=== PATIENT | female | born 1965 | race Caucasian/White ===

== ENCOUNTER 2018-12-31 10:52 | Inpatient (IN) | payer OTHER ==
[2018-12-31] MEDS ORDERED: Acetaminophen 500 MG Tab ONE (11:42)
[2018-12-31] MEDS ORDERED: Albuterol/Ipratropium 3.0-0.5 MG/3 ML Neb Soln ONE (11:42)
[2018-12-31] MEDS ORDERED: Sodium Chloride 0.9% 1,000 ML ONE (11:42)
[2018-12-31 12:31] LABS: CHLORIDE,CL 104 mEq/L (98-106); SODIUM,NA 143 mEq/L (136-145)
[2018-12-31] MEDS ORDERED: Albuterol/Ipratropium 3.0-0.5 MG/3 ML Neb Soln NEB PRN (14:19)
[2018-12-31] MEDS ORDERED: Ondansetron 4 MG/2 ML SDV IV PRN (14:19)
[2018-12-31] MEDS ORDERED: methylPREDNISolone Sodium Succinate 125 MG/2 ML SDV IVPUSH SCH (14:30)
[2018-12-31] MEDS: Enoxaparin 40 MG/0.4 ML Syringe SUBCUT SCH (15:00)
[2018-12-31] MEDS: Levofloxacin/Dextrose 5%-Water 750 MG in Premix Bag 1 BAG IV SCH (15:00)
[2018-12-31] MEDS: Albuterol/Ipratropium 3.0-0.5 MG/3 ML Neb Soln NEB SCH ×2 (16:27→19:24)
[2018-12-31] MEDS: Ibuprofen 200 MG Tab PO PRN (19:25)
[2019-01-01] MEDS: guaiFENesin/Dextromethorphan 100-10 MG/5 ML Soln 5 ML Cup PO PRN ×2 (01:23→21:00)
[2019-01-01] MEDS: Acetaminophen 325 MG Tab PO PRN ×2 (04:36→22:42)
[2019-01-01 07:25] LABS: CHLORIDE,CL 106 mEq/L (98-106); SODIUM,NA 142 mEq/L (136-145)
[2019-01-01] MEDS: Albuterol/Ipratropium 3.0-0.5 MG/3 ML Neb Soln NEB SCH ×4 (07:53→19:53)
[2019-01-01] MEDS ORDERED: methylPREDNISolone Sodium Succinate 125 MG/2 ML SDV IVPUSH SCH (08:00)
--- NOTE | 2019-01-01 11:50 | PCM.PN ---
- General Info Date of Service: 01/01/19 Functional Status: Reports: Pain Controlled, Tolerating Diet, Ambulating - Review of Systems General: Reports: Weakness (generalized), Fatigue, Malaise HEENT: Reports: Sinus Congestion Pulmonary: Reports: Shortness of Breath, Cough. Denies: Sputum Cardiovascular: Reports: No Symptoms Gastrointestinal: Reports: No Symptoms Genitourinary: Reports: No Symptoms Musculoskeletal: Reports: No Symptoms Skin: Reports: No Symptoms Neurological: Reports: No Symptoms Psychiatric: Reports: No Symptoms - Patient Data Vitals - Most Recent: Last Vital Signs Temp 98.8 F 01/01/19 08:00 Pulse 78 01/01/19 08:00 Resp 20 01/01/19 08:00 BP 127/74 01/01/19 08:00 Pulse Ox 127 H 01/01/19 08:00 Weight - Most Recent: 259 lb Lab Results Last 24 Hours: Laboratory Results - last 24 hr 12/31/18 01/01/19 01/01/19 Range/Units 11:50 06:45 06:45 WBC 19.9 H (5.0-10.0) 10^3/uL RBC 4.12 (4.00-5.50) 10^6/uL Hgb 12.8 (12.0-16.0) g/dL Hct 38.8 (37.0-47.0) % MCV 94.2 H (82.0-94.0) fL MCH 31.1 (27.0-32.0) pg MCHC 33.0 (33.0-38.0) g/dL RDW Coeff of Jim 13.8 (11.0-15.0) % Plt Count 196 (150-400) 10^3/uL Neut % (Auto) 89.9 H (35-85) % Lymph % (Auto) 4.9 L (10-55) % [place] % (Auto) 5.1 (0-16) % Eos % (Auto) 0 (0-5) % Baso % (Auto) 0.1 (0-3) % Neut # (Auto) 17.92 H (1.80-7.00) 10^3/uL Lymph # (Auto) 0.97 L (1.00-4.80) 10^3/uL [place] # (Auto) 1.01 H (0.00-0.80) 10^3/uL Eos # (Auto) 0.00 (0.00-0.45) 10^3/uL Baso # (Auto) 0.01 10^3/uL Neutrophils % (Manual) 73 (35-85) % Band Neutrophils % 20 H (0-5) % Lymphocytes % (Manual) 5 L (21-55) % Monocytes % (Manual) 2 (2-12) % Sodium 142 (136-145) mEq/L Potassium 3.8 (3.5-5.0) mEq/L Chloride 106 (98-106) mEq/L Carbon Dioxide 24 (21-32) mmol/L BUN 17 (7-18) mg/dL Creatinine 0.9 (0.6-1.0) mg/dL Est Cr Clr Drug Dosing 80.80 mL/min Estimated GFR (MDRD) > 60 (>=60) mL/min Glucose 119 H (75-99) mg/dL Calcium 9.6 (8.4-10.1) mg/dL C-Reactive Protein 15.8 H (0.2-0.8) mg/dL Gurpreet Results Last 24 Hours: Microbiology 12/31/18 10:45 Influenza Type A Antigen Screen - Final Nasopharyngeal Swab NEGATIVE INFLUENZA A VIRUS AG REFERENCE RANGE: NEGATIVE Influenza Type B Antigen Screen - Final NEGATIVE INFLUENZA B VIRUS AG REFERENCE RANGE: NEGATIVE Med Orders - Current: Current Medications Acetaminophen (Tylenol) 650 mg PO Q4H PRN PRN Reason: Fever Last Admin: 01/01/19 04:36 Dose: 650 mg Albuterol/Ipratropium (Duoneb 3.0-0.5 Mg/3 Ml) 3 ml NEB Q4H PRN PRN Reason: Shortness Of Breath/wheezing Albuterol/Ipratropium (Duoneb 3.0-0.5 Mg/3 Ml) 3 ml NEB QIDRT [facility] Last Admin: 01/01/19 07:53 Dose: 3 ml Enoxaparin Sodium (Lovenox) 40 mg SUBCUT Q24H [facility] Last Admin: 12/31/18 15:00 Dose: 40 mg Guaifenesin (Organ-I Nr) 200 mg PO TID [facility] Guaifenesin/Phenylephrine HCl (Robitussin Dm) 10 ml PO Q4H PRN PRN Reason: Cough Last Admin: 01/01/19 01:23 CDT Dose: 10 ml Levofloxacin/Dextrose 750 mg/ (Premix) 150 mls @ 100 mls/hr IV Q24H [facility] Last Admin: 12/31/18 15:00 Dose: 100 mls/hr Ibuprofen (Motrin) 600 mg PO Q6H PRN PRN Reason: Fever Last Admin: 12/31/18 19:25 Dose: 600 mg Ondansetron HCl (Zofran) 4 mg IV Q6H PRN PRN Reason: Nausea/Vomiting Discontinued Medications Acetaminophen (Tylenol Extra Strength) Confirm Administered Dose 1,000 mg .ROUTE .STK-MED ONE Stop: 12/31/18 11:43 Last Admin: 12/31/18 11:45 Dose: 1,000 mg Albuterol/Ipratropium (Duoneb 3.0-0.5 Mg/3 Ml) Confirm Administered Dose 6 ml .ROUTE .STK-MED ONE Stop: 12/31/18 11:43 Last Admin: 12/31/18 11:45 Dose: 6 ml Sodium Chloride (Normal Saline) Confirm Administered Dose 1,000 mls @ as directed .ROUTE .STK-MED ONE Stop: 12/31/18 11:43 Last Admin: 12/31/18 11:45 Dose: 500 mls/hr Methylprednisolone Sodium Succinate (Solu-Medrol) 62.5 mg IVPUSH Q12H [facility] Last Admin: 12/31/18 14:59 Dose: 62.5 mg Methylprednisolone Sodium Succinate (Solu-Medrol) 62.5 mg IVPUSH Q12H [facility] Last Admin: 01/01/19 07:53 Dose: 62.5 mg - Exam Quality Assessment: Supplemental Oxygen (2L NC, 92%) General: Alert, Oriented, Cooperative, No Acute Distress Neck: Supple, Trachea Midline, No JVD Lungs: Decreased Breath Sounds (Moderate [place]D, LLL, Mild remaining throughout. ) , Rhonchi (Moderate throughout) Cardiovascular: Regular Rate, Regular Rhythm, No Murmurs GI/Abdominal Exam: Soft, Non-Tender Back Exam: Normal Inspection, Full Range of Motion Extremities: Normal Inspection, Normal Range of Motion, Non-Tender, No Pedal Edema, Normal Capillary Refill. No: Pedal Edema Peripheral Pulses: 2+: Radial (L), Radial (R), Posterior Tibial (L), Posterior Tibial (R), Dorsalis Pedis (L), Dorsalis Pedis (R) Skin: Warm, Dry, Intact Neurological: No New Focal Deficit Psy/Mental Status: Alert, Normal Affect, Normal Mood - Problem List Review Problem List Initiated/Reviewed/Updated: Yes - My Orders Last 24 Hours: My Active Orders 12/31/18 11:50 CULTURE BLOOD [BC] Stat 12/31/18 11:55 CULTURE BLOOD [BC] Stat 12/31/18 14:19 Patient Status [ADT] Routine Ambulate [RC] .PRN Oxygen Therapy [RC] .PRN Vital Signs [RC] 0000,0400,0800,1200,1600,1999 CULTURE SPUTUM + SMEAR [RM] Stat Acetaminophen [Tylenol] 650 mg PO Q4H PRN Albuterol/Ipratropium [DuoNeb 3.0-0.5 MG/3 ML] 3 ml NEB Q4H PRN Ibuprofen [Motrin] 600 mg PO Q6H PRN Ondansetron [Zofran] 4 mg IV Q6H PRN Resuscitation Status Routine 12/31/18 14:20 Notify Provider Vital Signs [RC] .PRN Pulse Oximetry [RC] .PRN 12/31/18 14:21 Ambulate [RC] .PRN Antiembolic Hose [OM.PC] Per Unit Routine 12/31/18 14:23 RT Aerosol Therapy [RC] 0800,1200,1600,2000 12/31/18 14:30 Enoxaparin [Lovenox] 40 mg SUBCUT Q24H Levofloxacin/Dextrose 5%-Water [Levaquin in D5W 750 MG/150 ML] 750 mg Premix Bag 1 bag IV Q24H 12/31/18 16:00 Albuterol/Ipratropium [DuoNeb 3.0-0.5 MG/3 ML] 3 ml NEB QIDRT 12/31/18 Dinner Regular Diet [DIET] 01/01/19 01:08 Dextromethorphan/guaiFENesin [Robitussin DM] 10 ml PO Q4H PRN 01/01/19 14:00 guaiFENesin [Organ-I NR] 200 mg PO TID 01/02/19 05:00 C-REACTIVE PROTEIN [CHEM] DAILY CBC WITH AUTO DIFF [HEME] DAILY 01/03/19 05:00 C-REACTIVE PROTEIN [CHEM] DAILY CBC WITH AUTO DIFF [HEME] DAILY 01/04/19 05:00 C-REACTIVE PROTEIN [CHEM] DAILY CBC WITH AUTO DIFF [HEME] DAILY - Plan Plan:: This patient was admitted by me yesterday from clinic for pneumonia. Patient today reports that she continues to have cough that is not productive. She reports that she continues to have congestion and generalized weakness and fatigue. Patient reports that she does have shortness of breath, but that has improved slightly compared to yesterday. Patient today was able to ambulate to the bathroom and shower. Patient reports that she did not sleep well last night due to cough. Patient reports that the breathing treatments do feel like they are helping. Patient is alert and oriented and able to converse in full and complete sentences. Patient labs today are wbc 19.9, BUN 20, CR 0.9, CRP 15.8. The patient oxygen was 90% on RA, was placed on 2L NC and is now 92%. Patient is not moving much air on exam. Will start on Mucinex and continue with treatments. Plan is to keep admit and have her seen again tomorrow. Continue abx.
[2019-01-01] MEDS: Enoxaparin 40 MG/0.4 ML Syringe SUBCUT SCH (13:49)
[2019-01-01] MEDS: Levofloxacin/Dextrose 5%-Water 750 MG in Premix Bag 1 BAG IV SCH (13:49)
[2019-01-01] MEDS: guaiFENesin 200 MG Tab PO SCH ×2 (13:49→19:53)
--- NOTE | 2019-01-01 19:37 | PCM.SN ---
- Free Text/Narrative Note: The patient has been restless, her oxygen has been about 93% on 2 L NC. She reports still feeling short of breath even after breathing treatments. She reports insomnia. She reports nonproductive cough. I will CTA chest for PE, pulmonary occlusions, or pulmonary abscess. Also ordered an ABG.
[2019-01-01 19:38] LABS: O2 DELIVERY DEVICE NASAL CANNULA
[2019-01-01 19:40] LABS: BICARBONATE,ARTERIAL 21.7 mm/L (22.0-26.0); O2 SATURATION ARTERIAL 93 % (95-98); PCO2 ARTERIAL 35 mm/Hg0 (35-45); PO2 ARTERIAL 68 mm/Hg (80-100)
[2019-01-01] MEDS ORDERED: Iopamidol 755 Mg/ML 200 ML Bottle IV ONE (19:41)
[2019-01-01] MEDS: Temazepam 15 MG Cap PO PRN (22:41)
[2019-01-02] MEDS: Acetaminophen 325 MG Tab PO PRN (04:53)
[2019-01-02] MEDS: guaiFENesin/Dextromethorphan 100-10 MG/5 ML Soln 5 ML Cup PO PRN ×3 (04:53→19:49)
[2019-01-02] MEDS: Albuterol/Ipratropium 3.0-0.5 MG/3 ML Neb Soln NEB SCH ×4 (08:59→19:49)
[2019-01-02] MEDS: guaiFENesin 200 MG Tab PO SCH ×3 (08:59→19:49)
[2019-01-02] MEDS: Levofloxacin/Dextrose 5%-Water 750 MG in Premix Bag 1 BAG IV SCH (14:44)
[2019-01-02] MEDS: Enoxaparin 40 MG/0.4 ML Syringe SUBCUT SCH (14:45)
--- NOTE | 2019-01-02 16:39 | PCM.PN ---
- General Info Date of Service: 01/02/19 Functional Status: Reports: Pain Controlled, Tolerating Diet. Denies: Ambulating - Review of Systems General: Reports: Weakness, Fatigue, Malaise. Denies: Fever HEENT: Denies: Ear Pain, Sinus Congestion, Rhinitis Pulmonary: Reports: Shortness of Breath, Pleuritic Chest Pain, Cough. Denies: Sputum, Wheezing Cardiovascular: Denies: Chest Pain, Edema, Lightheadedness Gastrointestinal: Denies: Abdominal Pain, Nausea, Vomiting Genitourinary: Reports: No Symptoms Musculoskeletal: Reports: No Symptoms Skin: Reports: No Symptoms Neurological: Reports: No Symptoms - Patient Data Vitals - Most Recent: Last Vital Signs Temp 98.8 F 01/02/19 12:00 Pulse 83 01/02/19 12:00 Resp 18 01/02/19 12:00 BP 139/77 01/02/19 12:00 Pulse Ox 95 01/02/19 12:00 Weight - Most Recent: 259 lb Lab Results Last 24 Hours: Laboratory Results - last 24 hr 01/01/19 01/02/19 01/02/19 Range/Units 19:35 06:45 06:45 WBC 16.9 H (5.0-10.0) 10^3/uL RBC 3.85 L (4.00-5.50) 10^6/uL Hgb 12.0 (12.0-16.0) g/dL Hct 36.9 L (37.0-47.0) % MCV 95.8 H (82.0-94.0) fL MCH 31.2 (27.0-32.0) pg MCHC 32.5 L (33.0-38.0) g/dL RDW Coeff of Jim 14.1 (11.0-15.0) % Plt Count 190 (150-400) 10^3/uL Neut % (Auto) 83.7 (35-85) % Lymph % (Auto) 9.9 L (10-55) % [place] % (Auto) 6.3 (0-16) % Eos % (Auto) 0 (0-5) % Baso % (Auto) 0.1 (0-3) % Neut # (Auto) 14.12 H (1.80-7.00) 10^3/uL Lymph # (Auto) 1.67 (1.00-4.80) 10^3/uL [place] # (Auto) 1.06 H (0.00-0.80) 10^3/uL Eos # (Auto) 0.00 (0.00-0.45) 10^3/uL Baso # (Auto) 0.01 10^3/uL ABG pH 7.40 (7.35-7.45) ABG pCO2 35 (35-45) mm/Hg0 ABG pO2 68 L (80-100) mm/Hg ABG HCO3 21.7 L (22.0-26.0) mm/L ABG O2 Saturation 93 L (95-98) % ABG Base Excess -3.0 L (-2.0-3.0) O2 Delivery Device Nasal cannula C-Reactive Protein 6.4 H (0.2-0.8) mg/dL Gurpreet Results Last 24 Hours: Microbiology 12/31/18 11:55 Aerobic Blood Culture - Preliminary Blood - Venous - Lab Draw NO GROWTH AFTER 2 DAYS Anaerobic Blood Culture - Preliminary NO GROWTH AFTER 2 DAYS 12/31/18 11:50 Aerobic Blood Culture - Preliminary Blood - Venous NO GROWTH AFTER 2 DAYS Anaerobic Blood Culture - Preliminary NO GROWTH AFTER 2 DAYS 01/02/19 08:31 Gram Stain - Final Sputum - Expectorated Med Orders - Current: Current Medications Acetaminophen (Tylenol) 650 mg PO Q4H PRN PRN Reason: Fever Last Admin: 01/02/19 04:53 Dose: 650 mg Albuterol/Ipratropium (Duoneb 3.0-0.5 Mg/3 Ml) 3 ml NEB Q4H PRN PRN Reason: Shortness Of Breath/wheezing Albuterol/Ipratropium (Duoneb 3.0-0.5 Mg/3 Ml) 3 ml NEB QIDRT [facility] Last Admin: 01/02/19 16:21 Dose: 3 ml Enoxaparin Sodium (Lovenox) 40 mg SUBCUT Q24H [facility] Last Admin: 01/02/19 14:45 Dose: 40 mg Guaifenesin (Organ-I Nr) 200 mg PO TID [facility] Last Admin: 01/02/19 14:44 Dose: 200 mg Guaifenesin/Phenylephrine HCl (Robitussin Dm) 10 ml PO Q4H PRN PRN Reason: Cough Last Admin: 01/02/19 12:58 Dose: 10 ml Levofloxacin/Dextrose 750 mg/ (Premix) 150 mls @ 100 mls/hr IV Q24H [facility] Last Admin: 01/02/19 14:44 Dose: 100 mls/hr Ibuprofen (Motrin) 600 mg PO Q6H PRN PRN Reason: Fever Last Admin: 12/31/18 19:25 Dose: 600 mg Ondansetron HCl (Zofran) 4 mg IV Q6H PRN PRN Reason: Nausea/Vomiting Temazepam (Restoril) 15 mg PO BEDTIME PRN PRN Reason: Insomnia Last Admin: 01/01/19 22:41 Dose: 15 mg Discontinued Medications Acetaminophen (Tylenol Extra Strength) Confirm Administered Dose 1,000 mg .ROUTE .STK-MED ONE Stop: 12/31/18 11:43 Last Admin: 12/31/18 11:45 Dose: 1,000 mg Albuterol/Ipratropium (Duoneb 3.0-0.5 Mg/3 Ml) Confirm Administered Dose 6 ml .ROUTE .STK-MED ONE Stop: 12/31/18 11:43 Last Admin: 12/31/18 11:45 Dose: 6 ml Sodium Chloride (Normal Saline) Confirm Administered Dose 1,000 mls @ as directed .ROUTE .STK-MED ONE Stop: 12/31/18 11:43 Last Admin: 12/31/18 11:45 Dose: 500 mls/hr Iopamidol (Isovue-370 (76%)) 160 ml IV ONETIME ONE Stop: 01/01/19 19:42 Last Admin: 01/01/19 21:08 Dose: 160 ml Methylprednisolone Sodium Succinate (Solu-Medrol) 62.5 mg IVPUSH Q12H [facility] Last Admin: 12/31/18 14:59 Dose: 62.5 mg Methylprednisolone Sodium Succinate (Solu-Medrol) 62.5 mg IVPUSH Q12H [facility] Last Admin: 01/01/19 07:53 Dose: 62.5 mg - Exam Quality Assessment: Supplemental Oxygen General: Alert, Oriented HEENT: Mucous Membr. Moist/[place] Neck: Supple Lungs: Decreased Breath Sounds, Crackles (bases bilateral) Cardiovascular: Regular Rate, Regular Rhythm GI/Abdominal Exam: Normal Bowel Sounds, Soft, Non-Tender Back Exam: Normal Inspection, Full Range of Motion Extremities: Normal Range of Motion Skin: Warm, Dry Neurological: No New Focal Deficit - Problem List & Annotations (1) Pneumonia SNOMED Code(s): 895197568 Code(s): J18.9 - PNEUMONIA, UNSPECIFIED ORGANISM Status: Acute Priority: High Current Visit: Yes Qualifiers: Pneumonia type: due to unspecified organism Laterality: bilateral Lung location: lower lobe of lung Qualified Code(s): J18.1 - Lobar pneumonia, unspecified organism - Problem List Review Problem List Initiated/Reviewed/Updated: Yes - My Orders Last 24 Hours: My Active Orders 01/03/19 05:11 BASIC METABOLIC PANEL,BMP [CHEM] AM - Assessment Assessment:: Bilateral lower lobe pneumonia - Plan Plan:: This patient was admitted by me yesterday from clinic for pneumonia. Patient today reports that she continues to have cough that is not productive. She reports that she continues to have congestion and generalized weakness and fatigue. Patient reports that she does have shortness of breath, but that has improved slightly compared to yesterday. Patient today was able to ambulate to the bathroom and shower. Patient reports that she did not sleep well last night due to cough. Patient reports that the breathing treatments do feel like they are helping. Patient is alert and oriented and able to converse in full and complete sentences. Patient labs today are wbc 19.9, BUN 20, CR 0.9, CRP 15.8. The patient oxygen was 90% on RA, was placed on 2L NC and is now 92%. Patient is not moving much air on exam. Will start on Mucinex and continue with treatments. Plan is to keep admit and have her seen again tomorrow. Continue abx. 01-02-2019 Patient continues to feel weak and achy. She states her chest is burning due to the cough. Not sleeping well due to the cough. Did try a sleeping pill last night without much help. She is coughing more now, starting to be looser but not yet productive. She does continue to require oxygen as sats only 93% on 3 liters. Not ambulating much, states gets "too winded". Lung sounds are noted to have crackles in the bases. CT scan showed bibasilar pneumonia. Labs show slow improvement of WBC to 16.9, CRP 15.8. Will continue with IV Levaquin. Nebulizer treatments. Recheck labs in am.
[2019-01-02] MEDS: Ibuprofen 200 MG Tab PO PRN (19:58)
[2019-01-03] MEDS: guaiFENesin 200 MG Tab PO SCH ×3 (07:22→20:06)
[2019-01-03] MEDS: Albuterol/Ipratropium 3.0-0.5 MG/3 ML Neb Soln NEB SCH ×4 (07:23→20:06)
[2019-01-03] MEDS: Acetaminophen 325 MG Tab PO PRN ×2 (07:27→20:32)
--- NOTE | 2019-01-03 12:07 | PCM.PN ---
- General Info Date of Service: 01/03/19 Admission Dx/Problem (Free Text): bilateral lower lobe pneumonia Functional Status: Reports: Pain Controlled, Tolerating Diet. Denies: Ambulating - Review of Systems General: Reports: Weakness, Fatigue, Malaise. Denies: Fever HEENT: Reports: Rhinitis. Denies: Ear Pain, Sinus Congestion Pulmonary: Reports: Shortness of Breath, Pleuritic Chest Pain, Cough, Sputum Cardiovascular: Denies: Chest Pain, Edema, Lightheadedness Gastrointestinal: Denies: Abdominal Pain, Nausea, Vomiting Genitourinary: Reports: No Symptoms Musculoskeletal: Reports: No Symptoms Skin: Reports: No Symptoms Neurological: Reports: No Symptoms - Patient Data Vitals - Most Recent: Last Vital Signs Temp 98.1 F 01/03/19 08:00 Pulse 84 01/03/19 08:00 Resp 20 01/03/19 08:00 BP 148/75 H 01/03/19 08:00 Pulse Ox 93 L 01/03/19 08:00 Weight - Most Recent: 259 lb Lab Results Last 24 Hours: Laboratory Results - last 24 hr 01/03/19 01/03/19 Range/Units 07:00 07:00 WBC 8.4 (5.0-10.0) 10^3/uL RBC 4.17 (4.00-5.50) 10^6/uL Hgb 13.0 (12.0-16.0) g/dL Hct 39.8 (37.0-47.0) % MCV 95.4 H (82.0-94.0) fL MCH 31.2 (27.0-32.0) pg MCHC 32.7 L (33.0-38.0) g/dL RDW Coeff of Jim 14.2 (11.0-15.0) % Plt Count 192 (150-400) 10^3/uL Neut % (Auto) 70.8 (35-85) % Lymph % (Auto) 18.6 (10-55) % [place] % (Auto) 8.0 (0-16) % Eos % (Auto) 2.4 (0-5) % Baso % (Auto) 0.2 (0-3) % Neut # (Auto) 5.95 (1.80-7.00) 10^3/uL Lymph # (Auto) 1.56 (1.00-4.80) 10^3/uL [place] # (Auto) 0.67 (0.00-0.80) 10^3/uL Eos # (Auto) 0.20 (0.00-0.45) 10^3/uL Baso # (Auto) 0.02 10^3/uL Sodium 140 (136-145) mEq/L Potassium 3.9 (3.5-5.0) mEq/L Chloride 103 (98-106) mEq/L Carbon Dioxide 28 (21-32) mmol/L BUN 13 (7-18) mg/dL Creatinine 1.0 (0.6-1.0) mg/dL Est Cr Clr Drug Dosing 72.72 mL/min Estimated GFR (MDRD) 58 L (>=60) mL/min Glucose 95 (75-99) mg/dL Calcium 9.9 (8.4-10.1) mg/dL C-Reactive Protein 3.3 H (0.2-0.8) mg/dL Gurpreet Results Last 24 Hours: Microbiology 01/02/19 08:31 Gram Stain - Final Sputum - Expectorated Sputum Culture - Preliminary 12/31/18 11:55 Aerobic Blood Culture - Preliminary Blood - Venous - Lab Draw NO GROWTH AFTER 2 DAYS Anaerobic Blood Culture - Preliminary NO GROWTH AFTER 2 DAYS 12/31/18 11:50 Aerobic Blood Culture - Preliminary Blood - Venous NO GROWTH AFTER 2 DAYS Anaerobic Blood Culture - Preliminary NO GROWTH AFTER 2 DAYS Med Orders - Current: Current Medications Acetaminophen (Tylenol) 650 mg PO Q4H PRN PRN Reason: Fever Last Admin: 01/03/19 07:27 Dose: 650 mg Albuterol/Ipratropium (Duoneb 3.0-0.5 Mg/3 Ml) 3 ml NEB Q4H PRN PRN Reason: Shortness Of Breath/wheezing Albuterol/Ipratropium (Duoneb 3.0-0.5 Mg/3 Ml) 3 ml NEB QIDRT [facility] Last Admin: 01/03/19 07:23 Dose: 3 ml Enoxaparin Sodium (Lovenox) 40 mg SUBCUT Q24H [facility] Last Admin: 01/02/19 14:45 Dose: 40 mg Guaifenesin (Organ-I Nr) 200 mg PO TID [facility] Last Admin: 01/03/19 07:22 Dose: 200 mg Guaifenesin/Phenylephrine HCl (Robitussin Dm) 10 ml PO Q4H PRN PRN Reason: Cough Last Admin: 01/02/19 19:49 Dose: 10 ml Levofloxacin/Dextrose 750 mg/ (Premix) 150 mls @ 100 mls/hr IV Q24H [facility] Last Admin: 01/02/19 14:44 Dose: 100 mls/hr Ibuprofen (Motrin) 600 mg PO Q6H PRN PRN Reason: Fever Last Admin: 01/02/19 19:58 Dose: 600 mg Ondansetron HCl (Zofran) 4 mg IV Q6H PRN PRN Reason: Nausea/Vomiting Temazepam (Restoril) 15 mg PO BEDTIME PRN PRN Reason: Insomnia Last Admin: 01/01/19 22:41 Dose: 15 mg Discontinued Medications Acetaminophen (Tylenol Extra Strength) Confirm Administered Dose 1,000 mg .ROUTE .STK-MED ONE Stop: 12/31/18 11:43 Last Admin: 12/31/18 11:45 Dose: 1,000 mg Albuterol/Ipratropium (Duoneb 3.0-0.5 Mg/3 Ml) Confirm Administered Dose 6 ml .ROUTE .STK-MED ONE Stop: 12/31/18 11:43 Last Admin: 12/31/18 11:45 Dose: 6 ml Sodium Chloride (Normal Saline) Confirm Administered Dose 1,000 mls @ as directed .ROUTE .STK-MED ONE Stop: 12/31/18 11:43 Last Admin: 12/31/18 11:45 Dose: 500 mls/hr Iopamidol (Isovue-370 (76%)) 160 ml IV ONETIME ONE Stop: 01/01/19 19:42 Last Admin: 01/01/19 21:08 Dose: 160 ml Methylprednisolone Sodium Succinate (Solu-Medrol) 62.5 mg IVPUSH Q12H [facility] Last Admin: 12/31/18 14:59 Dose: 62.5 mg Methylprednisolone Sodium Succinate (Solu-Medrol) 62.5 mg IVPUSH Q12H [facility] Last Admin: 01/01/19 07:53 Dose: 62.5 mg - Exam General: Alert, Oriented HEENT: Mucous Membr. Moist/[place] Neck: Supple Lungs: Crackles Cardiovascular: Regular Rate, Regular Rhythm GI/Abdominal Exam: Normal Bowel Sounds, Soft, Non-Tender Extremities: Normal Inspection, No Pedal Edema Skin: Warm, Dry Neurological: No New Focal Deficit - Problem List & Annotations (1) Pneumonia SNOMED Code(s): 936573600 Code(s): J18.9 - PNEUMONIA, UNSPECIFIED ORGANISM Status: Acute Priority: High Current Visit: Yes Qualifiers: Pneumonia type: due to unspecified organism Laterality: bilateral Lung location: lower lobe of lung Qualified Code(s): J18.1 - Lobar pneumonia, unspecified organism - Problem List Review Problem List Initiated/Reviewed/Updated: Yes - My Orders Last 24 Hours: My Active Orders 01/03/19 09:26 Ambulate [RC] PER UNIT ROUTINE - Assessment Assessment:: Bilateral lower lobe pneumonia - Plan Plan:: This patient was admitted by me yesterday from clinic for pneumonia. Patient today reports that she continues to have cough that is not productive. She reports that she continues to have congestion and generalized weakness and fatigue. Patient reports that she does have shortness of breath, but that has improved slightly compared to yesterday. Patient today was able to ambulate to the bathroom and shower. Patient reports that she did not sleep well last night due to cough. Patient reports that the breathing treatments do feel like they are helping. Patient is alert and oriented and able to converse in full and complete sentences. Patient labs today are wbc 19.9, BUN 20, CR 0.9, CRP 15.8. The patient oxygen was 90% on RA, was placed on 2L NC and is now 92%. Patient is not moving much air on exam. Will start on Mucinex and continue with treatments. Plan is to keep admit and have her seen again tomorrow. Continue abx. 01-02-2019 Patient continues to feel weak and achy. She states her chest is burning due to the cough. Not sleeping well due to the cough. Did try a sleeping pill last night without much help. She is coughing more now, starting to be looser but not yet productive. She does continue to require oxygen as sats only 93% on 3 liters. Not ambulating much, states gets "too winded". Lung sounds are noted to have crackles in the bases. CT scan showed bibasilar pneumonia. Labs show slow improvement of WBC to 16.9, CRP 15.8. Will continue with IV Levaquin. Nebulizer treatments. Recheck labs in am. 01-03-2019 Patient starting to "finally feel better". Has less burning in her chest, able to get more sleep last night. Does continue to have frequent cough. Lung sounds continue to note crackles in the bases. Is using incentive spirometer every 1 or so. yesterday, reached 500, today at 750. has not yet been up and ambulating. Still requires oxygen. Attempted to wean last evening but sats dropped to 87% with any activity. Labs much improved today, WBC down to 8.4, CRP 3.3 Sputum gram stain shows gram positive cocci, awaiting full culture report. Encouraged use of IS. Ambulate in halls. Continue with IV antibiotics. Wean off oxygen as able. Recheck labs in am.
[2019-01-03] MEDS: Enoxaparin 40 MG/0.4 ML Syringe SUBCUT SCH (13:58)
[2019-01-03] MEDS: Levofloxacin/Dextrose 5%-Water 750 MG in Premix Bag 1 BAG IV SCH (14:04)
[2019-01-03] MEDS: guaiFENesin/Dextromethorphan 100-10 MG/5 ML Soln 5 ML Cup PO PRN ×2 (15:03→20:31)
[2019-01-03] MEDS: Nystatin Susp 100,000 Unit/ML 5 ML UD Cup PO SCH (20:06)
[2019-01-03] MEDS: Temazepam 15 MG Cap PO PRN (20:32)
[2019-01-04] MEDS: guaiFENesin/Dextromethorphan 100-10 MG/5 ML Soln 5 ML Cup PO PRN ×4 (05:06→19:45)
[2019-01-04] MEDS: Nystatin Susp 100,000 Unit/ML 5 ML UD Cup PO SCH ×4 (07:36→19:45)
[2019-01-04] MEDS: guaiFENesin 200 MG Tab PO SCH ×3 (07:36→19:44)
[2019-01-04] MEDS: Albuterol/Ipratropium 3.0-0.5 MG/3 ML Neb Soln NEB SCH ×4 (07:39→19:44)
--- NOTE | 2019-01-04 13:42 | PCM.PN ---
- General Info Date of Service: 01/04/19 Admission Dx/Problem (Free Text): bilateral lower lobe pneumonia Functional Status: Reports: Pain Controlled, Tolerating Diet, Ambulating, Incentive Spirometry - Review of Systems General: Reports: Fatigue, Malaise. Denies: Fever, Weakness HEENT: Reports: Other (cold sore noted around right nare; admits to thrush and mouth sores). Denies: Sore Throat Pulmonary: Reports: Shortness of Breath, Cough, Sputum. Denies: Pleuritic Chest Pain Cardiovascular: Denies: Chest Pain, Edema, Lightheadedness Gastrointestinal: Denies: Abdominal Pain, Nausea, Vomiting Genitourinary: Reports: No Symptoms Musculoskeletal: Reports: No Symptoms Skin: Reports: No Symptoms Neurological: Reports: No Symptoms - Patient Data Vitals - Most Recent: Last Vital Signs Temp 98.2 F 01/04/19 12:00 Pulse 87 01/04/19 12:00 Resp 20 01/04/19 12:00 BP 138/70 01/04/19 12:00 Pulse Ox 93 L 01/04/19 12:00 Weight - Most Recent: 259 lb Lab Results Last 24 Hours: Laboratory Results - last 24 hr 01/04/19 01/04/19 01/04/19 Range/Units 05:11 06:55 06:55 WBC 7.0 (5.0-10.0) 10^3/uL RBC 4.25 (4.00-5.50) 10^6/uL Hgb 13.2 (12.0-16.0) g/dL Hct 40.4 (37.0-47.0) % MCV 95.1 H (82.0-94.0) fL MCH 31.1 (27.0-32.0) pg MCHC 32.7 L (33.0-38.0) g/dL RDW Coeff of Jim 14.1 (11.0-15.0) % Plt Count 192 (150-400) 10^3/uL Neut % (Auto) 63.5 (35-85) % Lymph % (Auto) 22.1 (10-55) % Mckenzie % (Auto) 9.1 (0-16) % Eos % (Auto) 5.0 (0-5) % Baso % (Auto) 0.3 (0-3) % Neut # (Auto) 4.45 (1.80-7.00) 10^3/uL Lymph # (Auto) 1.55 (1.00-4.80) 10^3/uL Mckenzie # (Auto) 0.64 (0.00-0.80) 10^3/uL Eos # (Auto) 0.35 (0.00-0.45) 10^3/uL Baso # (Auto) 0.02 10^3/uL Sodium 141 (136-145) mEq/L Potassium 4.0 (3.5-5.0) mEq/L Chloride 103 (98-106) mEq/L Carbon Dioxide 28 (21-32) mmol/L BUN 14 (7-18) mg/dL Creatinine 1.0 (0.6-1.0) mg/dL Est Cr Clr Drug Dosing 72.72 mL/min Estimated GFR (MDRD) 58 L (>=60) mL/min Glucose 101 H (75-99) mg/dL Calcium 9.8 (8.4-10.1) mg/dL C-Reactive Protein 2.1 H (0.2-0.8) mg/dL Gurpreet Results Last 24 Hours: Microbiology 12/31/18 11:55 Aerobic Blood Culture - Preliminary Blood - Venous - Lab Draw NO GROWTH AFTER 4 DAYS Anaerobic Blood Culture - Preliminary NO GROWTH AFTER 4 DAYS 12/31/18 11:50 Aerobic Blood Culture - Preliminary Blood - Venous NO GROWTH AFTER 4 DAYS Anaerobic Blood Culture - Preliminary NO GROWTH AFTER 4 DAYS 01/02/19 08:31 Gram Stain - Final Sputum - Expectorated Sputum Culture - Final Med Orders - Current: Current Medications Acetaminophen (Tylenol) 650 mg PO Q4H PRN PRN Reason: Fever Last Admin: 01/03/19 20:32 Dose: 650 mg Albuterol/Ipratropium (Duoneb 3.0-0.5 Mg/3 Ml) 3 ml NEB Q4H PRN PRN Reason: Shortness Of Breath/wheezing Albuterol/Ipratropium (Duoneb 3.0-0.5 Mg/3 Ml) 3 ml NEB QIDRT [facility] Last Admin: 01/04/19 12:00 Dose: 3 ml Enoxaparin Sodium (Lovenox) 40 mg SUBCUT Q24H [facility] Last Admin: 01/03/19 13:58 Dose: 40 mg Guaifenesin (Organ-I Nr) 200 mg PO TID [facility] Last Admin: 01/04/19 07:36 Dose: 200 mg Guaifenesin/Phenylephrine HCl (Robitussin Dm) 10 ml PO Q4H PRN PRN Reason: Cough Last Admin: 01/04/19 10:04 Dose: 10 ml Levofloxacin/Dextrose 750 mg/ (Premix) 150 mls @ 100 mls/hr IV Q24H [facility] Last Admin: 01/03/19 14:04 Dose: 100 mls/hr Ibuprofen (Motrin) 600 mg PO Q6H PRN PRN Reason: Fever Last Admin: 01/02/19 19:58 Dose: 600 mg Nystatin (Mycostatin) 5 ml PO QID [facility] Last Admin: 01/04/19 12:00 Dose: 5 ml Ondansetron HCl (Zofran) 4 mg IV Q6H PRN PRN Reason: Nausea/Vomiting Temazepam (Restoril) 15 mg PO BEDTIME PRN PRN Reason: Insomnia Last Admin: 01/03/19 20:32 Dose: 15 mg Discontinued Medications Acetaminophen (Tylenol Extra Strength) Confirm Administered Dose 1,000 mg .ROUTE .STK-MED ONE Stop: 12/31/18 11:43 Last Admin: 12/31/18 11:45 Dose: 1,000 mg Albuterol/Ipratropium (Duoneb 3.0-0.5 Mg/3 Ml) Confirm Administered Dose 6 ml .ROUTE .STK-MED ONE Stop: 12/31/18 11:43 Last Admin: 12/31/18 11:45 Dose: 6 ml Sodium Chloride (Normal Saline) Confirm Administered Dose 1,000 mls @ as directed .ROUTE .STK-MED ONE Stop: 12/31/18 11:43 Last Admin: 12/31/18 11:45 Dose: 500 mls/hr Iopamidol (Isovue-370 (76%)) 160 ml IV ONETIME ONE Stop: 01/01/19 19:42 Last Admin: 01/01/19 21:08 Dose: 160 ml Methylprednisolone Sodium Succinate (Solu-Medrol) 62.5 mg IVPUSH Q12H [facility] Last Admin: 12/31/18 14:59 Dose: 62.5 mg Methylprednisolone Sodium Succinate (Solu-Medrol) 62.5 mg IVPUSH Q12H [facility] Last Admin: 01/01/19 07:53 Dose: 62.5 mg - Exam Quality Assessment: Supplemental Oxygen General: Alert, Oriented HEENT: Mucous Membr. Moist/[place] Neck: Supple Lungs: Normal Respiratory Effort, Crackles Cardiovascular: Regular Rate, Regular Rhythm GI/Abdominal Exam: Normal Bowel Sounds, Soft, Non-Tender Extremities: Normal Inspection, No Pedal Edema Skin: Warm, Dry Neurological: No New Focal Deficit - Problem List & Annotations (1) Pneumonia SNOMED Code(s): 311743408 Code(s): J18.9 - PNEUMONIA, UNSPECIFIED ORGANISM Status: Acute Priority: High Current Visit: Yes Qualifiers: Pneumonia type: due to unspecified organism Laterality: bilateral Lung location: lower lobe of lung Qualified Code(s): J18.1 - Lobar pneumonia, unspecified organism - Problem List Review Problem List Initiated/Reviewed/Updated: Yes - Assessment Assessment:: Bilateral lower lobe pneumonia - Plan Plan:: This patient was admitted by me yesterday from clinic for pneumonia. Patient today reports that she continues to have cough that is not productive. She reports that she continues to have congestion and generalized weakness and fatigue. Patient reports that she does have shortness of breath, but that has improved slightly compared to yesterday. Patient today was able to ambulate to the bathroom and shower. Patient reports that she did not sleep well last night due to cough. Patient reports that the breathing treatments do feel like they are helping. Patient is alert and oriented and able to converse in full and complete sentences. Patient labs today are wbc 19.9, BUN 20, CR 0.9, CRP 15.8. The patient oxygen was 90% on RA, was placed on 2L NC and is now 92%. Patient is not moving much air on exam. Will start on Mucinex and continue with treatments. Plan is to keep admit and have her seen again tomorrow. Continue abx. 01-02-2019 Patient continues to feel weak and achy. She states her chest is burning due to the cough. Not sleeping well due to the cough. Did try a sleeping pill last night without much help. She is coughing more now, starting to be looser but not yet productive. She does continue to require oxygen as sats only 93% on 3 liters. Not ambulating much, states gets "too winded". Lung sounds are noted to have crackles in the bases. CT scan showed bibasilar pneumonia. Labs show slow improvement of WBC to 16.9, CRP 15.8. Will continue with IV Levaquin. Nebulizer treatments. Recheck labs in am. 01-03-2019 Patient starting to "finally feel better". Has less burning in her chest, able to get more sleep last night. Does continue to have frequent cough. Lung sounds continue to note crackles in the bases. Is using incentive spirometer every 1 or so. yesterday, reached 500, today at 750. has not yet been up and ambulating. Still requires oxygen. Attempted to wean last evening but sats dropped to 87% with any activity. Labs much improved today, WBC down to 8.4, CRP 3.3 Sputum gram stain shows gram positive cocci, awaiting full culture report. Encouraged use of IS. Ambulate in halls. Continue with IV antibiotics. Wean off oxygen as able. Recheck labs in am. 01-04-2019 Patient feeling better, still weak but finally able to sleep now. Cough has loosened, productive now at times. Does still get short of breath with exertion. Still using incentive spirometer, increased to 1250 today. Sputum culture shows normal kimberlyn. Labs are improved, WBC 7.0, CRP 2.1. Electrolytes are normal. Oxygen sat on room air 90% on room air but does drop to 85-88% with ambulation. Lung sounds noted crackles in bases. Will continue with IS. Ambulate. Monitor oxygen sats. IV antibiotics. Probable discharge home tomorrow.
[2019-01-04] MEDS: Enoxaparin 40 MG/0.4 ML Syringe SUBCUT SCH (14:04)
[2019-01-04] MEDS: Levofloxacin/Dextrose 5%-Water 750 MG in Premix Bag 1 BAG IV SCH (14:05)
[2019-01-04] MEDS: Temazepam 15 MG Cap PO PRN (21:04)
[2019-01-05] MEDS: guaiFENesin/Dextromethorphan 100-10 MG/5 ML Soln 5 ML Cup PO PRN ×2 (00:15→20:47)
[2019-01-05] MEDS: Acetaminophen 325 MG Tab PO PRN (00:37)
[2019-01-05] MEDS ORDERED: Calcium Carbonate 500 MG Tab.Chew PO PRN (07:28)
[2019-01-05] MEDS: guaiFENesin 200 MG Tab PO SCH ×3 (08:25→19:22)
[2019-01-05] MEDS: Nystatin Susp 100,000 Unit/ML 5 ML UD Cup PO SCH ×4 (08:26→19:23)
[2019-01-05] MEDS: Albuterol/Ipratropium 3.0-0.5 MG/3 ML Neb Soln NEB SCH ×5 (08:26→20:43)
[2019-01-05] MEDS ORDERED: methylPREDNISolone Sodium Succinate 125 MG/2 ML SDV IVPUSH ONE (09:07)
[2019-01-05] MEDS: Levofloxacin/Dextrose 5%-Water 750 MG in Premix Bag 1 BAG IV SCH (14:03)
[2019-01-05] MEDS: Enoxaparin 40 MG/0.4 ML Syringe SUBCUT SCH (14:03)
--- NOTE | 2019-01-05 18:37 | PCM.PN ---
- General Info Date of Service: 01/05/19 Admission Dx/Problem (Free Text): bilateral lower lobe pneumonia Functional Status: Reports: Pain Controlled, Tolerating Diet, Ambulating, Incentive Spirometry - Review of Systems General: Reports: Weakness, Fatigue. Denies: Fever HEENT: Reports: No Symptoms Pulmonary: Reports: Shortness of Breath, Cough, Sputum. Denies: Wheezing Cardiovascular: Denies: Chest Pain, Edema, Lightheadedness Gastrointestinal: Denies: Abdominal Pain, Nausea, Vomiting Genitourinary: Reports: No Symptoms Musculoskeletal: Reports: No Symptoms Skin: Reports: No Symptoms Neurological: Reports: No Symptoms - Patient Data Vitals - Most Recent: Last Vital Signs Temp 98 F 01/05/19 16:00 Pulse 93 01/05/19 16:00 Resp 18 01/05/19 16:00 BP 129/71 01/05/19 16:00 Pulse Ox 92 L 01/05/19 16:00 Weight - Most Recent: 259 lb Gurpreet Results Last 24 Hours: Microbiology 12/31/18 11:55 Aerobic Blood Culture - Final Blood - Venous - Lab Draw NO GROWTH AFTER 5 DAYS Anaerobic Blood Culture - Final NO GROWTH AFTER 5 DAYS 12/31/18 11:50 Aerobic Blood Culture - Final Blood - Venous NO GROWTH AFTER 5 DAYS Anaerobic Blood Culture - Final NO GROWTH AFTER 5 DAYS Med Orders - Current: Current Medications Acetaminophen (Tylenol) 650 mg PO Q4H PRN PRN Reason: Fever Last Admin: 01/05/19 00:37 Dose: 650 mg Albuterol/Ipratropium (Duoneb 3.0-0.5 Mg/3 Ml) 3 ml NEB Q4H PRN PRN Reason: Shortness Of Breath/wheezing Albuterol/Ipratropium (Duoneb 3.0-0.5 Mg/3 Ml) 3 ml NEB QIDRT [facility] Last Admin: 01/05/19 17:40 Dose: 3 ml Calcium Carbonate/Glycine (Tums) 500 mg PO QID PRN PRN Reason: Dyspepsia Enoxaparin Sodium (Lovenox) 40 mg SUBCUT Q24H [facility] Last Admin: 01/05/19 14:03 Dose: 40 mg Guaifenesin (Organ-I Nr) 200 mg PO TID [facility] Last Admin: 01/05/19 14:04 Dose: 200 mg Guaifenesin/Phenylephrine HCl (Robitussin Dm) 10 ml PO Q4H PRN PRN Reason: Cough Last Admin: 01/05/19 00:15 Dose: 10 ml Levofloxacin/Dextrose 750 mg/ (Premix) 150 mls @ 100 mls/hr IV Q24H [facility] Last Admin: 01/05/19 14:03 Dose: 100 mls/hr Ibuprofen (Motrin) 600 mg PO Q6H PRN PRN Reason: Fever Last Admin: 01/02/19 19:58 Dose: 600 mg Nystatin (Mycostatin) 5 ml PO QID [facility] Last Admin: 01/05/19 16:12 Dose: 5 ml Ondansetron HCl (Zofran) 4 mg IV Q6H PRN PRN Reason: Nausea/Vomiting Temazepam (Restoril) 15 mg PO BEDTIME PRN PRN Reason: Insomnia Last Admin: 01/04/19 21:04 Dose: 15 mg Discontinued Medications Acetaminophen (Tylenol Extra Strength) Confirm Administered Dose 1,000 mg .ROUTE .STK-MED ONE Stop: 12/31/18 11:43 Last Admin: 12/31/18 11:45 Dose: 1,000 mg Albuterol/Ipratropium (Duoneb 3.0-0.5 Mg/3 Ml) Confirm Administered Dose 6 ml .ROUTE .STK-MED ONE Stop: 12/31/18 11:43 Last Admin: 12/31/18 11:45 Dose: 6 ml Sodium Chloride (Normal Saline) Confirm Administered Dose 1,000 mls @ as directed .ROUTE .STK-MED ONE Stop: 12/31/18 11:43 Last Admin: 12/31/18 11:45 Dose: 500 mls/hr Iopamidol (Isovue-370 (76%)) 160 ml IV ONETIME ONE Stop: 01/01/19 19:42 Last Admin: 01/01/19 21:08 Dose: 160 ml Methylprednisolone Sodium Succinate (Solu-Medrol) 62.5 mg IVPUSH Q12H [facility] Last Admin: 12/31/18 14:59 Dose: 62.5 mg Methylprednisolone Sodium Succinate (Solu-Medrol) 62.5 mg IVPUSH Q12H [facility] Last Admin: 01/01/19 07:53 Dose: 62.5 mg Methylprednisolone Sodium Succinate (Solu-Medrol) 125 mg IVPUSH NOW ONE Stop: 01/05/19 09:08 Last Admin: 01/05/19 10:44 Dose: 125 mg - Exam Quality Assessment: Supplemental Oxygen General: Alert, Oriented HEENT: Mucous Membr. Moist/[place] Neck: Supple Lungs: Crackles Cardiovascular: Regular Rate, Regular Rhythm GI/Abdominal Exam: Normal Bowel Sounds, Soft, Non-Tender Extremities: Normal Inspection, No Pedal Edema Skin: Warm, Dry Neurological: No New Focal Deficit - Problem List & Annotations (1) Pneumonia SNOMED Code(s): 037401580 Code(s): J18.9 - PNEUMONIA, UNSPECIFIED ORGANISM Status: Acute Priority: High Current Visit: Yes Qualifiers: Pneumonia type: due to unspecified organism Laterality: bilateral Lung location: lower lobe of lung Qualified Code(s): J18.1 - Lobar pneumonia, unspecified organism - Problem List Review Problem List Initiated/Reviewed/Updated: Yes - My Orders Last 24 Hours: My Active Orders 01/05/19 07:28 Calcium Carbonate [Tums] 500 mg PO QID PRN - Assessment Assessment:: Bilateral lower lobe pneumonia - Plan Plan:: This patient was admitted by me yesterday from clinic for pneumonia. Patient today reports that she continues to have cough that is not productive. She reports that she continues to have congestion and generalized weakness and fatigue. Patient reports that she does have shortness of breath, but that has improved slightly compared to yesterday. Patient today was able to ambulate to the bathroom and shower. Patient reports that she did not sleep well last night due to cough. Patient reports that the breathing treatments do feel like they are helping. Patient is alert and oriented and able to converse in full and complete sentences. Patient labs today are wbc 19.9, BUN 20, CR 0.9, CRP 15.8. The patient oxygen was 90% on RA, was placed on 2L NC and is now 92%. Patient is not moving much air on exam. Will start on Mucinex and continue with treatments. Plan is to keep admit and have her seen again tomorrow. Continue abx. 01-02-2019 Patient continues to feel weak and achy. She states her chest is burning due to the cough. Not sleeping well due to the cough. Did try a sleeping pill last night without much help. She is coughing more now, starting to be looser but not yet productive. She does continue to require oxygen as sats only 93% on 3 liters. Not ambulating much, states gets "too winded". Lung sounds are noted to have crackles in the bases. CT scan showed bibasilar pneumonia. Labs show slow improvement of WBC to 16.9, CRP 15.8. Will continue with IV Levaquin. Nebulizer treatments. Recheck labs in am. 01-03-2019 Patient starting to "finally feel better". Has less burning in her chest, able to get more sleep last night. Does continue to have frequent cough. Lung sounds continue to note crackles in the bases. Is using incentive spirometer every 1 or so. yesterday, reached 500, today at 750. has not yet been up and ambulating. Still requires oxygen. Attempted to wean last evening but sats dropped to 87% with any activity. Labs much improved today, WBC down to 8.4, CRP 3.3 Sputum gram stain shows gram positive cocci, awaiting full culture report. Encouraged use of IS. Ambulate in halls. Continue with IV antibiotics. Wean off oxygen as able. Recheck labs in am. 01-04-2019 Patient feeling better, still weak but finally able to sleep now. Cough has loosened, productive now at times. Does still get short of breath with exertion. Still using incentive spirometer, increased to 1250 today. Sputum culture shows normal kimberlyn. Labs are improved, WBC 7.0, CRP 2.1. Electrolytes are normal. Oxygen sat on room air 90% on room air but does drop to 85-88% with ambulation. Lung sounds noted crackles in bases. Will continue with IS. Ambulate. Monitor oxygen sats. IV antibiotics. Probable discharge home tomorrow. 01-05-2019 Patient states is feeling again more weak and exhausted today. Did sleep last night. Oxygen sats did drop through the night so oxygen was again resumed. Had been maintaining yesterday around 90%. Now on 1 liter to keep sat at 92%. She does continue to use IS. Today, only measuring around 1000. Cough is moist , productive now at times but relatively clear sputum. Sputum culture was normal kimberlyn. Have had patient up and ambulating today to determine ability to be discharged, oxygen sats still dropping to 83-85%. Lung sounds still note crackles in the bases, left greater than right but are improving. Will continue with IS and ambulation. IV antibiotics. May need to be discharged home with oxygen. Will reevaluate and arrange in am if needed. Repeat labs tomorrow.
[2019-01-05] MEDS: Temazepam 15 MG Cap PO PRN (20:46)
[2019-01-06] MEDS: Albuterol/Ipratropium 3.0-0.5 MG/3 ML Neb Soln NEB SCH ×2 (08:04→11:48)
[2019-01-06] MEDS: Nystatin Susp 100,000 Unit/ML 5 ML UD Cup PO SCH ×2 (08:04→11:48)
[2019-01-06] MEDS: guaiFENesin 200 MG Tab PO SCH (08:04)
--- NOTE | 2019-01-06 09:21 | PCM.DCSUM1 ---
Discharge Summary - Hospital Course Free Text/Narrative:: Patient presented to clinic with cough, shortness of breath, fever and weakness. Symptoms progressing over the week. Had developed low grade fever. Was tachycardic in clinic, wheezing. Given nebulizer treatment in clinic. Labs done, show high WBC of 18.7, 20 bands. CRP 5.3. Chest xray shows bilateral lower lobe pneumonia. Admitted for IV antibiotics, nebs, steroids. Diagnosis: Stroke: No Modified Corbin Scale: No Symptoms at All Modified Corbin Scale Score: 0 - Discharge Data Discharge Date: 01/06/19 Discharge Disposition: Home, Self-Care 01 Condition: Good - Referral to Home Health Primary Care Physician: PCP None - Discharge Diagnosis/Problem(s) (1) Pneumonia SNOMED Code(s): 487312787 ICD Code: J18.9 - PNEUMONIA, UNSPECIFIED ORGANISM Status: Acute Priority : High Qualifiers: Pneumonia type: due to other aerobic Gram-negative bacteria Laterality: bilateral Lung location: lower lobe of lung Qualified Code(s): J15.6 - Pneumonia due to other Gram-negative bacteria - Patient Summary/Data Complications: none Hospital Course: Patient has had slow improvement of pneumonia. In the first 24 hours, patient was feeling more shortness of breath, chest tightness. CT scan was done, negative for PE. Oxygen was initiated as having difficulty keeping oxygen sats greater than 90%. Was given steroids for the first 2 days and then stopped due to complaints of insomnia. Mucinex was started to loosen cough. Continued to feel short of breath with exertion through the week. Lung sounds noted to have rales in the bases. Having difficulty with deep inspiration, not doing well with incentive spirometry. Slow improvement with air flow, started out with 500 on IS, eventually able to achieve 1500. Restarted steroids later in the week. Unable to wean off oxygen, needing with activity. Overall, is feeling better. Tolerating meals and activity well. Sputum culture negative. Labs much improved over the week, wBC now normal. CRP down to 1.2 Will discharge home. Levaquin 500 mg daily for one week. Oxygen as needed, wean off as able. Rest. Mucinex. Phenergan with codeine for cough. Follow up with [place] in one week. - Patient Instructions Diet: Usual Diet as Tolerated Activity: As Tolerated Other/Special Instructions: 1. Oxygen as directed~ wean as able. 2. Mucinex twice per day - Discharge Plan *PRESCRIPTION DRUG MONITORING PROGRAM REVIEWED*: No *COPY OF PRESCRIPTION DRUG MONITORING REPORT IN PATIENT REGGIE: No Prescriptions/Med Rec: Albuterol/Ipratropium [DuoNeb 3.0-0.5 MG/3 ML] 3 ml INH QID #1 box Levofloxacin [Levaquin] 500 mg PO DAILY #7 tablet Home Medications: Home Meds Albuterol/Ipratropium [DuoNeb 3.0-0.5 MG/3 ML] 3 ml INH QID #1 box 01/06/19 [Rx] Levofloxacin [Levaquin] 500 mg PO DAILY #7 tablet 01/06/19 [Rx] Patient Handouts: Community-Acquired Pneumonia, Adult Referrals: Kelsey Colin PA [ED Midlevel Provider] - (Follow up with [place] in one week) - Discharge Summary/Plan Comment DC Time >30 min.: No - General Info Date of Service: 01/06/19 Admission Dx/Problem (Free Text: bilateral lower lobe pneumonia Functional Status: Reports: Pain Controlled, Tolerating Diet, Ambulating - Review of Systems General: Reports: Weakness, Fatigue, Malaise. Denies: Fever HEENT: Reports: Rhinitis Pulmonary: Reports: Shortness of Breath, Cough, Sputum. Denies: Wheezing Cardiovascular: Reports: No Symptoms Gastrointestinal: Reports: No Symptoms Genitourinary: Reports: No Symptoms Musculoskeletal: Reports: No Symptoms Skin: Reports: No Symptoms - Patient Data Vitals - Most Recent: Last Vital Signs Temp 98.2 F 01/06/19 08:00 Pulse 81 01/06/19 08:00 Resp 18 01/06/19 08:00 BP 136/84 01/06/19 08:00 Pulse Ox 92 L 01/06/19 08:00 Weight - Most Recent: 259 lb Lab Results - Last 24 hrs: Laboratory Results - last 24 hr 01/06/19 01/06/19 01/06/19 Range/Units 06:45 06:45 07:00 WBC 14.4 H (5.0-10.0) 10^3/uL RBC 4.39 (4.00-5.50) 10^6/uL Hgb 13.5 (12.0-16.0) g/dL Hct 41.6 (37.0-47.0) % MCV 94.8 H (82.0-94.0) fL MCH 30.8 (27.0-32.0) pg MCHC 32.5 L (33.0-38.0) g/dL RDW Coeff of Jim 13.9 (11.0-15.0) % Plt Count 218 (150-400) 10^3/uL Neut % (Auto) 81.7 (35-85) % Lymph % (Auto) 10.6 (10-55) % [place] % (Auto) 7.5 (0-16) % Eos % (Auto) 0.1 (0-5) % Baso % (Auto) 0.1 (0-3) % Neut # (Auto) 11.81 H (1.80-7.00) 10^3/uL Lymph # (Auto) 1.53 (1.00-4.80) 10^3/uL [place] # (Auto) 1.08 H (0.00-0.80) 10^3/uL Eos # (Auto) 0.01 (0.00-0.45) 10^3/uL Baso # (Auto) 0.01 10^3/uL Sodium 139 (136-145) mEq/L Potassium 3.9 (3.5-5.0) mEq/L Chloride 102 (98-106) mEq/L Carbon Dioxide 27 (21-32) mmol/L BUN 18 (7-18) mg/dL Creatinine 1.0 (0.6-1.0) mg/dL Est Cr Clr Drug Dosing 72.72 mL/min Estimated GFR (MDRD) 58 L (>=60) mL/min Glucose 102 H (75-99) mg/dL Calcium 9.5 (8.4-10.1) mg/dL C-Reactive Protein 1.2 H (0.2-0.8) mg/dL NT-Pro-B Natriuret Pep 52 (0-1000) pg/mL LOVE Results - Last 24 hrs: Microbiology 12/31/18 11:55 Aerobic Blood Culture - Final Blood - Venous - Lab Draw NO GROWTH AFTER 5 DAYS Anaerobic Blood Culture - Final NO GROWTH AFTER 5 DAYS 12/31/18 11:50 Aerobic Blood Culture - Final Blood - Venous NO GROWTH AFTER 5 DAYS Anaerobic Blood Culture - Final NO GROWTH AFTER 5 DAYS Med Orders - Current: Current Medications Acetaminophen (Tylenol) 650 mg PO Q4H PRN PRN Reason: Fever Last Admin: 01/05/19 00:37 Dose: 650 mg Albuterol/Ipratropium (Duoneb 3.0-0.5 Mg/3 Ml) 3 ml NEB Q4H PRN PRN Reason: Shortness Of Breath/wheezing Albuterol/Ipratropium (Duoneb 3.0-0.5 Mg/3 Ml) 3 ml NEB QIDRT [facility] Last Admin: 01/06/19 08:04 Dose: 3 ml Calcium Carbonate/Glycine (Tums) 500 mg PO QID PRN PRN Reason: Dyspepsia Enoxaparin Sodium (Lovenox) 40 mg SUBCUT Q24H [facility] Last Admin: 01/05/19 14:03 Dose: 40 mg Guaifenesin (Organ-I Nr) 200 mg PO TID [facility] Last Admin: 01/06/19 08:04 Dose: 200 mg Guaifenesin/Phenylephrine HCl (Robitussin Dm) 10 ml PO Q4H PRN PRN Reason: Cough Last Admin: 01/05/19 20:47 Dose: 10 ml Levofloxacin/Dextrose 750 mg/ (Premix) 150 mls @ 100 mls/hr IV Q24H [facility] Last Admin: 01/05/19 14:03 Dose: 100 mls/hr Ibuprofen (Motrin) 600 mg PO Q6H PRN PRN Reason: Fever Last Admin: 01/02/19 19:58 Dose: 600 mg Nystatin (Mycostatin) 5 ml PO QID [facility] Last Admin: 01/06/19 08:04 Dose: 5 ml Ondansetron HCl (Zofran) 4 mg IV Q6H PRN PRN Reason: Nausea/Vomiting Temazepam (Restoril) 15 mg PO BEDTIME PRN PRN Reason: Insomnia Last Admin: 01/05/19 20:46 Dose: 15 mg Discontinued Medications Acetaminophen (Tylenol Extra Strength) Confirm Administered Dose 1,000 mg .ROUTE .STK-MED ONE Stop: 12/31/18 11:43 Last Admin: 12/31/18 11:45 Dose: 1,000 mg Albuterol/Ipratropium (Duoneb 3.0-0.5 Mg/3 Ml) Confirm Administered Dose 6 ml .ROUTE .STK-MED ONE Stop: 12/31/18 11:43 Last Admin: 12/31/18 11:45 Dose: 6 ml Sodium Chloride (Normal Saline) Confirm Administered Dose 1,000 mls @ as directed .ROUTE .STK-MED ONE Stop: 12/31/18 11:43 Last Admin: 12/31/18 11:45 Dose: 500 mls/hr Iopamidol (Isovue-370 (76%)) 160 ml IV ONETIME ONE Stop: 01/01/19 19:42 Last Admin: 01/01/19 21:08 Dose: 160 ml Methylprednisolone Sodium Succinate (Solu-Medrol) 62.5 mg IVPUSH Q12H [facility] Last Admin: 12/31/18 14:59 Dose: 62.5 mg Methylprednisolone Sodium Succinate (Solu-Medrol) 62.5 mg IVPUSH Q12H [facility] Last Admin: 01/01/19 07:53 Dose: 62.5 mg Methylprednisolone Sodium Succinate (Solu-Medrol) 125 mg IVPUSH NOW ONE Stop: 01/05/19 09:08 Last Admin: 01/05/19 10:44 Dose: 125 mg - Exam General: Reports: Alert, Oriented HEENT: Reports: Mucous Membr. Moist/[place]ck: Reports: Supple Lungs: Reports: Crackles Cardiovascular: Reports: Regular Rate, Regular Rhythm GI/Abdominal Exam: Normal Bowel Sounds, Soft, Non-Tender Extremities: Normal Inspection, No Pedal Edema Skin: Reports: Warm, Dry Neurological: Reports: No New Focal Deficit
== END 2019-01-06 12:59 | disposition home or self-care (01) | DRG 177 ==
LOC: CC.LAB 10:52 → CC.MS 11:45 → UNDOADMIN 11:45 → CC.MS 14:19
PROVIDERS: ADMIT Nurse Practitioner; ATTEND Family Medicine
DX: J15.6 Pneumonia due to other Gram-negative bacteria (principal); J96.01 Acute respiratory failure with hypoxia; G47.00 Insomnia, unspecified; Z79.899 Other long term (current) drug therapy; Z88.1 Allergy status to other antibiotic agents
CPT/HCPCS: 36415; 36600; 71046; 71275; 80048; 80053; 82803; 83605; 83880; 85025; 86140; 87040; 87070; 87205; 87804; 94640; 94760; A9270-GY; J1650; J1956; J2930; J7030; J7620-GY; Q9967

== ENCOUNTER 2020-12-27 17:51 | Emergency (ER) | payer OTHER ==
--- NOTE | 2020-12-27 18:46 | EDM.PDOC ---
ED HPI GENERAL MEDICAL PROBLEM - General Chief Complaint: General Stated Complaint: Chest Pressure Time Seen by Provider: 12/27/20 18:10 Source of Information: Reports: Patient History Limitations: Reports: No Limitations - History of Present Illness INITIAL COMMENTS - FREE TEXT/NARRATIVE: Marita is a 55 year old female who presents to ER with a one month history of feeling lightheaded at times, intermittent burning in her chest and "seizures in my back". She got the covid vaccine Kwesi and Kwesi about a month ago and it has felt that much of her symptoms have been since then. Describes as a "fibromyalgia flare". Yesterday, noted more back spasms that radiated in to her chest. Took advil as thought may her back was out and she has been under a great deal of stress over the last several months related to her 's health. She states she awoke feeling better so did go to work but over the day, has been more lightheaded, had chest discomfort and shortness of breath. [place] her lips have been tingly. No fevers. No bloody nose. Denies sinus congestion, nausea/vomiting, diarrhea or edema. Went to the drug store and took her blood pressure and was 168/88. Had checked it a month ago here after being at the eye doctor and was in the 150s at that time. Unsure if related to the vaccine as her blood pressures have always been good. Onset: Gradual Duration: Week(s):, Getting Worse Location: Reports: Head, Chest, Generalized Quality: Reports: Ache Severity: Mild Improves with: Reports: Rest Associated Symptoms: Reports: Chest Pain, Malaise, Shortness of Breath. 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: Musculoskeletal History: Reports: Fibromyalgia Psychiatric History: Reports: Anxiety, Depression - Infectious Disease History Infectious Disease History: Reports: Chicken Pox, Influenza - Past Surgical History HEENT Surgical History: Reports: None Respiratory Surgical History: Reports: None Musculoskeletal Surgical History: Reports: Shoulder Surgery Other Musculoskeletal Surgeries/Procedures:: laser shoulder surgery to shrink tissue in 1995 Social & Family History - Tobacco Use Tobacco Use Status *Q: Never Tobacco User Second Hand Smoke Exposure: No - Caffeine Use Caffeine Use: Reports: None - Recreational Drug Use Recreational Drug Use: No ED ROS GENERAL - Review of Systems Review Of Systems: See Below Constitutional: Reports: Malaise, Fatigue. Denies: Fever, Chills, Weakness, Decreased Appetite HEENT: Reports: Rhinitis. Denies: Ear Pain, Sinus Problem, Throat Pain, Vertigo Respiratory: Reports: Shortness of Breath. Denies: Cough Cardiovascular: Reports: Chest Pain, Lightheadedness. Denies: Edema Endocrine: Reports: Fatigue GI/Abdominal: Denies: Abdominal Pain, Constipation, Diarrhea, Nausea, Vomiting : Reports: No Symptoms Musculoskeletal: Reports: No Symptoms Skin: Reports: No Symptoms Neurological: Denies: Confusion, Headache ED EXAM, GENERAL - Physical Exam Exam: See Below Exam Limited By: No Limitations General Appearance: Alert, WD/WN, No Apparent Distress Ears: Normal External Exam, Normal TMs Nose: Normal Inspection, Normal Mucosa, No Blood Throat/Mouth: Normal Inspection, Normal Oropharynx Head: Normocephalic Neck: Normal Inspection, Supple, Non-Tender Respiratory/Chest: No Respiratory Distress, Lungs Clear, Normal Breath Sounds Cardiovascular: Regular Rate, Rhythm GI/Abdominal: Normal Bowel Sounds, Soft, Non-Tender Extremities: Normal Inspection, No Pedal Edema Neurological: Alert, Oriented Skin Exam: Warm, Dry Course - Vital Signs Last Recorded V/S: Last Vital Signs Temp 98.1 F 12/27/20 17:58 Pulse 72 12/27/20 17:58 Resp 18 12/27/20 17:58 BP 189/96 H 12/27/20 17:58 Pulse Ox 98 12/27/20 17:58 - Orders/Labs/Meds Orders: Active Orders 24 hr Category Date Time Status Chest 2V [CR] Stat Exams 12/27/20 17:51 Taken Labs: Laboratory Tests 12/27/20 12/27/20 12/27/20 Range/Units 18:08 18:08 18:08 WBC 7.1 (4.0-11.0) 10^3/uL RBC 4.37 (4.00-5.50) x10^6/uL Hgb 13.2 (12.0-16.0) g/dL Hct 40.3 (37.0-47.0) % MCV 92.2 (83.0-97.0) fL MCH 30.2 (27.0-32.0) pg MCHC 32.8 (32.0-36.0) g/dL RDW Coeff of Jim 13.4 (11.0-15.0) % Plt Count 203 (150-400) 10^3/uL Immature Gran % (Auto) 0.1 (0.0-4.9) % Neut % (Auto) 66.8 (41-71) % Lymph % (Auto) 21.8 L (24-44) % [place] % (Auto) 8.3 (0-10) % Eos % (Auto) 2.7 (0-6) % Baso % (Auto) 0.3 (0-1) % Neut # (Auto) 4.72 (1.80-8.00) x10^3/uL Lymph # (Auto) 1.54 (0.60-5.00) 10^3/uL [place] # (Auto) 0.59 (0.00-1.50) 10^3/uL Eos # (Auto) 0.19 (0.00-1.50) 10^3/uL Baso # (Auto) 0.02 (0.00-0.50) 10^3/uL Immature Gran # (Auto) 0.01 (0.00-0.49) 10^3/uL APTT (23.2-32.3) SEC D-Dimer, Quantitative 0.19 (0.00-0.50) Sodium 144 (136-145) mEq/L Potassium 3.9 (3.5-5.0) mEq/L Chloride 106 (98-106) mEq/L Carbon Dioxide 29 (21-32) mmol/L BUN 19 H (7-18) mg/dL Creatinine 1.1 H (0.6-1.0) mg/dL Est Cr Clr Drug Dosing 60.39 mL/min Estimated GFR (MDRD) 52 L (>=60) mL/min Glucose 97 (75-99) mg/dL Calcium 9.7 (8.4-10.1) mg/dL Magnesium 1.9 (1.8-2.4) mg/dL Total Bilirubin 0.7 (0.0-1.0) mg/dL AST 17 (15-37) U/L ALT 36 (12-78) U/L Alkaline Phosphatase 75 (46-116) U/L Troponin I High Sens 4.9 (<=51) pg/mL Total Protein 7.6 (6.4-8.2) g/dL Albumin 4.1 (3.4-5.0) g/dL 12/27/20 Range/Units 18:08 WBC (4.0-11.0) 10^3/uL RBC (4.00-5.50) x10^6/uL Hgb (12.0-16.0) g/dL Hct (37.0-47.0) % MCV (83.0-97.0) fL MCH (27.0-32.0) pg MCHC (32.0-36.0) g/dL RDW Coeff of Jim (11.0-15.0) % Plt Count (150-400) 10^3/uL Immature Gran % (Auto) (0.0-4.9) % Neut % (Auto) (41-71) % Lymph % (Auto) (24-44) % [place]eld % (Auto) (0-10) % Eos % (Auto) (0-6) % Baso % (Auto) (0-1) % Neut # (Auto) (1.80-8.00) x10^3/uL Lymph # (Auto) (0.60-5.00) 10^3/uL Weld # (Auto) (0.00-1.50) 10^3/uL Eos # (Auto) (0.00-1.50) 10^3/uL Baso # (Auto) (0.00-0.50) 10^3/uL Immature Gran # (Auto) (0.00-0.49) 10^3/uL APTT 25.0 (23.2-32.3) SEC D-Dimer, Quantitative (0.00-0.50) Sodium (136-145) mEq/L Potassium (3.5-5.0) mEq/L Chloride (98-106) mEq/L Carbon Dioxide (21-32) mmol/L BUN (7-18) mg/dL Creatinine (0.6-1.0) mg/dL Est Cr Clr Drug Dosing mL/min Estimated GFR (MDRD) (>=60) mL/min Glucose (75-99) mg/dL Calcium (8.4-10.1) mg/dL Magnesium (1.8-2.4) mg/dL Total Bilirubin (0.0-1.0) mg/dL AST (15-37) U/L ALT (12-78) U/L Alkaline Phosphatase (46-116) U/L Troponin I High Sens (<=51) pg/mL Total Protein (6.4-8.2) g/dL Albumin (3.4-5.0) g/dL - Re-Assessments/Exams Free Text/Narrative Re-Assessment/Exam: 12/27/20 1830 Recheck blood pressure 141/79. Labs all normal. EKG and chest xray normal. Discussed with patient. Will need to follow this closely. Advised to return in am for blood pressure recheck as may need to consider starting on Lisinopril. Has health maintenance exam with this author on Wednesday as well. Departure - Departure Time of Disposition: 18:43 Disposition: Home, Self-Care 01 Condition: Good Clinical Impression: Hypertension Qualifiers: Hypertension type: primary hypertension Qualified Code(s): I10 - Essential (primary) hypertension - Discharge Information *PRESCRIPTION DRUG MONITORING PROGRAM REVIEWED*: No *COPY OF PRESCRIPTION DRUG MONITORING REPORT IN PATIENT REGGIE: No Instructions: Hypertension, Adult, [id number] Referrals: Kelsey Colin PA [Primary Care Provider] - Forms: ED Department Discharge Additional Instructions: 1. Rest 2. Reduce caffeine, alcohol, and salt 3. Return in am for recheck of blood pressure 4. If develop increasing chest pain or shortness of breath, changes in head discomfort, return back to ER 5. Call with any questions or concerns Sepsis Event Note (ED) - Evaluation Sepsis Screening Result: No Definite Risk - Focused Exam Vital Signs: Vital Signs Temp Pulse Resp BP Pulse Ox 12/27/20 17:58 98.1 F 72 18 189/96 H 98 - My Orders Last 24 Hours: My Active Orders 12/27/20 17:51 Chest 2V [CR] Stat - Assessment/Plan Last 24 Hours: My Active Orders 12/27/20 17:51 Chest 2V [CR] Stat
== END 2020-12-27 19:00 | disposition home or self-care (01) ==
LOC: CC.ED 17:51
DX: I10 Essential (primary) hypertension (principal); Z88.1 Allergy status to other antibiotic agents
CPT/HCPCS: 36415; 71046; 80053; 83735; 84484; 85025; 85379; 85730; 93005; 99285-25

== ENCOUNTER → 2021-03-28 | Day surgery (SDC) | payer OTHER ==
[~2021-03-28] MED LIST: Ketamine 200 MG/20 ML MDV ONE; Lactated Ringers 1,000 ML IV SCH; Propofol 200 MG/20 ML SDV ONE; fentaNYL 100 MCG/2 ML SDV ONE
== END ==
LOC: CC.SDS 12:27
PROVIDERS: ATTEND Family Medicine
DX: Z12.11 Encounter for screening for malignant neoplasm of colon (principal); B34.9 Viral infection, unspecified; Z88.8 Allergy status to other drugs, medicaments and biological substances; Z88.1 Allergy status to other antibiotic agents; Z79.899 Other long term (current) drug therapy
CPT/HCPCS: 00812; J2704; J3010; J7120